=== PATIENT | male | born 1985 | race Caucasian/White ===

== ENCOUNTER 2018-01-14 04:00 | Emergency (ER) | payer SELFPAY ==
[~2018-01-14] VITALS: Ht 180.3 cm; Wt 108.9 kg
[~2018-01-14 04:00] MED LIST: PRED20TA6 PO; SULF-198 PO; VALA100062 PO
--- NOTE | 2018-01-14 04:04 | ER Report ---
History and Physical Time Seen By MD: 04:00 HPI/ROS CHIEF COMPLAINT: ankle injury HISTORY OF PRESENT ILLNESS: This is a 33 year old male. He slipped on the ice, heard a pop when he fell. Ankle is at an odd angle. He has pain, but is blunted due to alcohol intoxication tonight. Last drink was about 45 minutes prior to arrival here in the ER. Last food was at about 2100 hours. Has sensation in the foot and toes and can move the toes. Did not hit his head or lose consciousness. Has a scrape on his lower back. No other injuries. Allergies: Coded Allergies: No Known Drug Allergies (Unverified , 01/14/18) Home Meds Active Scripts Ondansetron (ZOFRAN ODT) 4 Mg Tab.rapdis, 4 MG PO Q6H Y for NAUSEA/VOMITING, # 20 TAB.VEE 0 Refills Prov:LIDYA JADE MD 01/14/18 Hydrocodone Bit/Acetaminophen (HYDROCODON-ACETAMINOPHEN 5-325) 1 Each Tablet, 1 EACH PO Q4H Y for PAIN, #20 TAB 0 Refills Prov:LIDYA JADE MD 01/14/18 Discontinued Scripts Prednisone (PREDNISONE) 20 Mg Tablet, 20 MG PO QDAY for reduced nerve inflammation, #12 2 tablets by mouth daily x4 days, then one by mouth daily x4 days Prov:REGINE JONES DO 04/02/15 Valacyclovir Hcl (VALTREX) 1,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, 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, #21 Prov:REGINE JONES DO 04/02/15 Reviewed Nurses Notes: Yes Hx Smoking: Yes Smoking Status: Light Tobacco Smoker Hx Substance Use Disorder: No Hx Alcohol Use: No Constitutional Vital Sign - Last 24 Hours 01/14/18 01/14/18 01/14/18 01/14/18 04:03 04:04 04:30 04:48 Temp 98.3 Pulse 103 95 Resp 20 17 B/P (MAP) 134/81 (98) 134/81 121/67 (85) 109/79 (89) Pulse Ox 93 92 O2 Delivery Room Air 01/14/18 01/14/18 01/14/18 01/14/18 04:50 04:52 04:55 05:00 Pulse 78 Resp 23 B/P (MAP) 112/71 (85) 98/65 (76) 109/80 (90) 116/75 (89) Pulse Ox 90 01/14/18 01/14/18 01/14/18 01/14/18 05:05 05:10 05:15 05:30 B/P (MAP) 115/72 (86) 119/68 (85) 139/76 (97) 111/47 (68) 01/14/18 05:35 Pulse 89 Resp 23 Pulse Ox 91 Physical Exam General: Alert, intoxicated, no acute distress. Musculoskeletal: Obvious deformity fo the ankle. Tender. Foot is posterior and angle to the side with the distal tibia sticking forward. Skin: Some bruising, but no laceration or skin breakdown anywhere. Neuro: Normal sensation. Cardiovascular: Normal pulses and capillary refill. Medical Decision Making EKG/Imaging Imaging LEFT LOWER LEG: Indication: Injury. Technique: 2 views were obtained. Comparison: None. Findings: There is a comminuted fracture of the distal fibular shaft, with significant angulation and displacement. The proximal fibula appears intact and unremarkable. There are no definite signs of tibial fracture. There is posterior dislocation of the ankle. The skeletal structures are otherwise intact. There is normal mineralization. IMPRESSION: Comminuted fracture of the distal fibula. Report Dictated By: Gabino Hastings MD at 01/14/2018 4:55 AM LEFT FOOT: Indication: Injury. Technique: 2 views were obtained. Comparison: None. Findings: There is posterior dislocation of the left ankle. No fracture is identified in the bones of the left foot. There is normal mineralization. IMPRESSION: The bones of the left foot are intact. Report Dictated By: Gabino Hastings MD at 01/14/2018 4:52 AM LEFT ANKLE: Indication: Injury. Technique: Frontal and lateral views were obtained. Comparison: None. Findings: There is a comminuted fracture of the distal fibular shaft, with significant angulation and displacement. A fracture at the posterior margin of the distal tibia is suspected. There is posterior dislocation of the talus. There are no signs of talar fracture. There is normal mineralization of the skeletal structures. Periarticular soft tissue swelling is evident. IMPRESSION: Fracture/dislocation. Report Dictated By: Gabino Hastings MD at 01/14/2018 4:47 AM ANKLE 2 VIEW LEFT HISTORY: Post reduction. COMPARISON: Earlier same day at 4:14 AM. TECHNIQUE: AP and lateral views of the left ankle. FINDINGS: There is a comminuted fracture of the distal fibular diaphysis. There has been reduction of the apex anterior angulation. The tibiotalar dislocation has been reduced. There is an enthesophyte at the insertion of Achilles tendon on the calcaneus. IMPRESSION: 1. Reduction of the tibiotalar dislocation. 2. Improvement in alignment of the distal fibular diaphysis. Report Dictated By: Nidia Lepe at 01/14/2018 5:22 AM ED Course/Re-evaluation Clinical Indication for ER IV: Hydration, IV Access ED Course After evaluation, he started having pain and nausea. Gave Fentanyl 50mcg IV and Zofran 4mg IV. Discussed the results of imaging with the patient once available. Recommended sedation and reduction, explained risks and benefits. Patient agreed to do this and we proceeded as noted below. Successful relocation. Patient did fine. Viewed the post-reduction images and discussed briefly with Dr. Landaverde and will have the patient see [facility] on Tuesday. Pain management with Lortab as noted. See instructions below. Procedure: Procedural sedation. A pre-sedation evaluation was completed on the patient. Patient is an appropriate candidate for procedural sedation. The risks of the sedation were discussed with the patient. A time out was completed. The patient was reevaluated immediately prior to initiation of sedation. The patient was sedated with Fentany and Propofol. The patient was monitored with continuous pulse oximetry and playground monitor. There were no complications and no significant hypoxemia. I remained at the bedside for the sedation. The total time I spent in the procedural sedation was 30 min. Post sedation evaluation: Patient was alert and cooperative, hemodynamically stable with appropriate respiratory status, temperature and pain control without ongoing nausea and vomiting. Procedure: Ankle fracture dislocation reduction: The ankle was reduced in the usual fashion without complications. Post reduction the patient's neurovascular exam is normal. Post reduction x-ray demonstrates reduction of the joint to the anatomic position. The procedure was performed by myself. Procedure: Posterior and sugar Tong half cast placement on the left ankle. A half-cast/splint as noted above was applied. After application of the half- cast, I returned and re-examined the patient. The half-cast was adequately immobilizing the joint and distally the patient's circulation and sensation was intact. This was applied by myself. Decision to Disposition Date: Jan 14, 2018 Decision to Disposition Time: 05:34 Depart Departure Latest Vital Signs Vital Signs Date Time Temp Pulse Resp B/P (MAP) Pulse Ox O2 Delivery O2 Flow Rate FiO2 01/14/18 05:35 89 23 91 01/14/18 05:30 111/47 (68) 01/14/18 04:04 98.3 Room Air Impression: Primary Impression: Closed left fibular fracture Additional Impression: Closed fracture dislocation of ankle Condition: Improved Disposition: HOME OR SELF-CARE New Scripts Ondansetron (ZOFRAN ODT) 4 Mg Tab.rapdis 4 MG PO Q6H Y for NAUSEA/VOMITING, #20 TAB.VEE 0 Refills Prov: LIDYA JADE MD 01/14/18 Hydrocodone Bit/Acetaminophen (HYDROCODON-ACETAMINOPHEN 5-325) 1 Each Tablet 1 EACH PO Q4H Y for PAIN, #20 TAB 0 Refills Prov: LIDYA JADE MD 01/14/18 Patient Instructions: Ankle Fracture (ED) Additional Instructions: No weight bearing on the left leg; will need to use crutches. Keep it elevated while at rest. Apply ice over the splint every hour while awake for about 10-15 minutes. Take Lortab 5/325, one every 4 hours as needed for pain. Take Zofran 4mg, one every 4 hours as needed for nausea. Call [facility] on Tuesday morning and they will get you in for further treatment and let you know what needs to be done to address the fracture. Return for any uncontrolled pain, nausea, fevers or chills, or shortness of breath. Problem Qualifiers Primary Impression: Closed left fibular fracture Encounter type: initial encounter Fibula location: shaft Fracture morphology: comminuted Fracture alignment: nondisplaced Qualified Codes: S82.455A - Nondisplaced comminuted fracture of shaft of left fibula, initial encounter for closed fracture Additional Impression: Closed fracture dislocation of ankle Encounter type: initial encounter Laterality: left Qualified Codes: S82.892A - Other fracture of left lower leg, initial encounter for closed fracture LIDYA JADE MD Jan 14, 2018 04:04
[2018-01-14] MEDS ORDERED: fentaNYL CITR 100 MCG/2 ML AMP IVP ONE ×2 (04:20→04:45)
[2018-01-14] MEDS ORDERED: ONDANSETRON 4 MG/2 ML VIAL IVP ONE (04:25)
[2018-01-14] MEDS ORDERED: PROPOFOL EMUL 10MG/ML 20 ML VL IVP ONE (04:45)
[2018-01-14] MEDS ORDERED: fentaNYL CITR 100 MCG/2 ML AMP ONE (04:45)
--- NOTE | 2018-01-14 04:56 | RADIOLOGY IMAGING REPORT ---
FACILITY: [facility] - [place], [place] PATIENT NAME: Alli Mchugh : 1985 MR: [id number] V: [id number] EXAM DATE: ORDERING PHYSICIAN: LIDYA JADE TECHNOLOGIST: Location: [facility] Patient: Alli Mchugh : 1985 Visit/Account:[id number] Date of Sevice: 01/14/2018 LEFT ANKLE: Indication: Injury. Technique: Frontal and lateral views were obtained. Comparison: None. Findings: There is a comminuted fracture of the distal fibular shaft, with significant angulation and displacement. A fracture at the posterior margin of the distal tibia is suspected. There is posterio r dislocation of the talus. There are no signs of talar fracture. There is normal mineralization of t he skeletal structures. Periarticular soft tissue swelling is evident. IMPRESSION: Fracture/dislocation. Report Dictated By: Gabino Hastings MD at 01/14/2018 4:47 AM Report E-Signed By: Gabino Hastings MD at 01/14/2018 4:52 AM WSN:[id number]
--- NOTE | 2018-01-14 04:58 | RADIOLOGY IMAGING REPORT ---
FACILITY: [facility] - [place] PATIENT NAME: Alli Mchugh : 1985 MR: [id number] V: [id number] EXAM DATE: ORDERING PHYSICIAN: LIDYA JADE TECHNOLOGIST: Location: [facility] Patient: Alli Mchugh : 1985 Visit/Account:[id number] Date of Sevice: 01/14/2018 LEFT FOOT: Indication: Injury. Technique: 2 views were obtained. Comparison: None. Findings: There is posterior dislocation of the left ankle. No fracture is identified in the bones of the left foot. There is normal mineralization. IMPRESSION: The bones of the left foot are intact. Report Dictated By: Gabino Hastings MD at 01/14/2018 4:52 AM Report E-Signed By: Gabino Hastings MD at 01/14/2018 4:55 AM WSN:[id number]
--- NOTE | 2018-01-14 05:01 | RADIOLOGY IMAGING REPORT ---
FACILITY: [facility] - [place] PATIENT NAME: Alli Mchugh : 1985 MR: [id number] V: [id number] EXAM DATE: ORDERING PHYSICIAN: LIDYA JADE TECHNOLOGIST: Location: [facility] Patient: Alli Mchugh : 1985 Visit/Account:[id number] Date of Sevice: 01/14/2018 LEFT LOWER LEG: Indication: Injury. Technique: 2 views were obtained. Comparison: None. Findings: There is a comminuted fracture of the distal fibular shaft, with significant angulation and displacement. The proximal fibula appears intact and unremarkable. There are no definite signs of ti bial fracture. There is posterior dislocation of the ankle. The skeletal structures are otherwise int act. There is normal mineralization. IMPRESSION: Comminuted fracture of the distal fibula. Report Dictated By: Gabino Hastings MD at 01/14/2018 4:55 AM Report E-Signed By: Gabino Hastings MD at 01/14/2018 4:58 AM WSN:[id number]
--- NOTE | 2018-01-14 05:28 | RADIOLOGY IMAGING REPORT ---
FACILITY: [facility] - [place] PATIENT NAME: Alli Mchugh : 1985 MR: [id number] V: [id number] EXAM DATE: ORDERING PHYSICIAN: LIDYA JADE TECHNOLOGIST: Location: [facility] Patient: Alli Mchugh : 1985 Visit/Account:[id number] Date of Sevice: 01/14/2018 ANKLE 2 VIEW LEFT HISTORY: Post reduction. COMPARISON: Earlier same day at 4:14 AM. TECHNIQUE: AP and lateral views of the left ankle. FINDINGS: There is a comminuted fracture of the distal fibular diaphysis. There has been reduction of the apex anterior angulation. The tibiotalar dislocation has been reduced. There is an enthesophyte at the insertion of Achilles tendon on the calcaneus. IMPRESSION: 1. Reduction of the tibiotalar dislocation. 2. Improvement in alignment of the distal fibular diaphysis. Report Dictated By: Nidia Lepe at 01/14/2018 5:22 AM Report E-Signed By: Nidia Lepe at 01/14/2018 5:24 AM WSN:[email or web address]
[2018-01-14 05:30] VITALS: BP 111/47
[2018-01-14] MEDS ORDERED: ONDA4TAB PO (05:38)
[2018-01-14] MEDS ORDERED: LOR5/325 PO (05:38)
[2018-01-14] MEDS ORDERED: ACET/HYDROC 5/325MG TH ER ONLY 2 TAB/BOTTLE PO ONE (05:40)
[2018-01-14] MEDS ORDERED: ONDANSETRON 4 MG ODT TH SL ONE (05:40)
[2018-01-14] MEDS ORDERED: ONDANSETRON 4 MG ODT TABDP SL ONE (05:40)
[2018-01-14] MEDS ORDERED: APAP/HYDROCODONE 325/5 TAB PO ONE (05:40)
== END 2018-01-14 05:54 | disposition home or self-care (01) ==
LOC: ER 04:26
DX: S82.455A Nondisplaced comminuted fracture of shaft of left fibula, initial encounter for closed fracture (principal); S82.892A Other fracture of left lower leg, initial encounter for closed fracture; W00.0XXA Fall on same level due to ice and snow, initial encounter
CPT/HCPCS: 27788; 73590; 73600; 73610; 73630; 96374; 96375; 99284; J2405; J2704; J3010; 99152

== ENCOUNTER 2018-02-16 15:21 | Inpatient (IN) | payer OTHER ==
--- NOTE | 2018-02-16 15:28 | ER Report ---
History and Physical Time Seen By MD: 15:28 HPI/ROS CHIEF COMPLAINT: DVT HISTORY OF PRESENT ILLNESS: 33-year-old male patient presents to emergency room with complaint of a DVT. Patient states that he broke his ankle in December. He came in the emergency room, he had a reduced and splinted. He had surgery proximal 0.5 weeks ago. He states that he has noticed over last several days swelling and pain in the left calf. He did go and see a provider at [facility]. He states that they ordered a ultrasound. The ultrasound was positive and they referred him to the emergency room. Patient denies having any chest pain, any shortness of breath. He denies having any fevers or chills. Patient states he is not taking anything for the pain. He states the pain was significant last night. He states that he was almost unable to bear the pain and almost came in last night for evaluation. REVIEW OF SYSTEMS: Respiratory: No cough, no dyspnea. Cardiovascular: No chest pain, no palpitations. Gastrointestinal: No vomiting, no abdominal pain. Musculoskeletal: No back pain. Allergies: Coded Allergies: No Known Drug Allergies (Unverified , 02/16/18) Home Meds Discontinued Scripts Ondansetron (ZOFRAN ODT) 4 Mg Tab.rapdis, 4 MG PO Q6H Y for NAUSEA/VOMITING, # 20 TAB.VEE 0 Refills Prov:LIDYA JADE MD 01/14/18 Hydrocodone Bit/Acetaminophen (HYDROCODON-ACETAMINOPHEN 5-325) 1 Each Tablet, 1 EACH PO Q4H Y for PAIN, #20 TAB 0 Refills Prov:LIDYA JADE MD 01/14/18 Past Medical/Surgical History Patient has a past medical history of migraines, alcohol use. Patient has surgical history of left fibula repair, tonsillectomy. Reviewed Nurses Notes: Yes Hx Smoking: Yes Smoking Status: Light Tobacco Smoker Hx Substance Use Disorder: No Hx Alcohol Use: No Constitutional Vital Sign - Last 24 Hours 02/16/18 02/16/18 02/16/18 02/16/18 15:27 15:29 15:31 15:36 Temp 98.3 Pulse 108 108 108 Resp 20 B/P (MAP) 139/88 111/103 (106) 139/88 (105) Pulse Ox 91 91 90 O2 Delivery Room Air 3/02/16/18 02/16/18 02/16/18 15:41 15:45 15:46 15:46 Pulse 104 98 B/P (MAP) 134/84 (101) Pulse Ox 90 90 O2 Flow Rate 2.0 02/16/18 02/16/18 02/16/18 02/16/18 15:51 15:56 16:00 16:01 Pulse 100 97 104 B/P (MAP) 132/76 (94) Pulse Ox 94 95 95 02/16/18 02/16/18 02/16/18 02/16/18 16:06 16:11 16:15 16:16 Pulse ? B/P (MAP) 122/70 (87) 02/16/18 02/16/18 02/16/18 02/16/18 16:21 16:26 16:30 16:31 Pulse 98 105 95 B/P (MAP) 121/52 (75) Pulse Ox 95 94 95 02/16/18 02/16/18 02/16/18 02/16/18 16:36 16:41 16:45 16:46 Pulse 92 91 92 B/P (MAP) 116/72 (87) Pulse Ox 96 95 97 02/16/18 02/16/18 16:51 16:56 Pulse 92 90 Pulse Ox 96 97 Physical Exam General Appearance: The patient is alert, has no immediate need for airway protection and no current signs of toxicity. Respiratory: Chest is non tender, lungs are clear to auscultation. Cardiac: regular rate and rhythm Gastrointestinal: Abdomen is soft and non tender, no masses, bowel sounds normal. Musculoskeletal: Neck: Neck is supple and non tender. Extremities have full range of motion and are non tender. Skin: No rashes or lesions. DIFFERENTIAL DIAGNOSIS: After history and physical exam differential diagnosis was considered for DVT, PE. Medical Decision Making EKG/Imaging Imaging EXAMINATION: CTA of the chest with IV contrast HISTORY: DVT. Elevated heart rate. SpO2 89%. TECHNIQUE: Pulmonary embolus protocol - Thin axial CT images of the chest were obtained with IV contrast during maximal pulmonary arterial opacification. Reconstruction of the source data includes multiplanar 2D coronal and sagittal reconstructed images, and 3D coronal and sagittal MIP images. [employer] images have been stored on PACS. One of the following dose optimization techniques was utilized in the performance of this exam: Automated exposure control; adjustment of the mA and/ or kV according to the patient's size; or use of an iterative reconstruction technique. Specific details can be referenced in the facility's radiology CT exam operational policy. Contrast: 75 mL of IV Isovue-370. COMPARISON: None. FINDINGS: Pulmonary arteries: Exam is positive for pulmonary embolism. There is a filling defect in the distal right main pulmonary artery, with filling defects extending into segmental and subsegmental branches in the right upper, middle, and lower lobes. There are several additional small filling defects within segmental and subsegmental branches in the left upper and lower lobes. Heart, aorta, and great vessels: Normal caliber thoracic aorta. Normal heart size. Borderline elevated RV:LV ratio measuring 1.0. No pericardial effusion. Lungs and pleura: There are small foci of peripheral airspace disease in the right middle lobe and anterior right lower lobe, in the posterior right lung base, and in the left lower lobe laterally, suspicious for small pulmonary infarcts. No pleural effusion or pneumothorax. Mediastinum and pablo: Negative. Visualized upper abdomen: Unremarkable. Chest wall: Negative. Bones: Negative. IMPRESSION: 1. Positive exam for pulmonary embolism. Moderate clot burden predominantly to the right lung, with filling defects present in the right upper, middle, and lower lobes, as well as several small filling defects in the left upper and lower lobes. 2. Borderline elevated RV:LV ratio measuring 1.0, which may reflect mild right heart strain. 3. Small foci of peripheral airspace disease in both lungs, suspicious for small pulmonary infarcts. No pleural effusion. Findings were discussed with Olivia Frias MD at 02/16/2018 4:43 PM. Report Dictated By: Oliverio Valentin MD at 02/16/2018 4:35 PM Report E-Signed By: Oliverio Valentin MD at 02/16/2018 4:45 PM ED Course/Re-evaluation ED Course Patient was admitted to exam room, history and physical were obtained. Differential diagnoses were considered. On examination lungs are clear, heart was regular although his tachycardia. Patient did have oxygen saturations that dropped down to 8889%. Due that I did become concerned about possible pulmonary emboli. A CT pulmonary angiogram was done. Results showed moderate clot burden throughout, did have a clot in the distal right pulmonary artery. I discussed the case with sami Atkinson. He felt that with the new recommendations the patient should be admitted and watched overnight. We'll go ahead and give him a dose of Zaroxolyn here in the emergency room. I discussed this with the patient who verbalized understanding and agreement with plan. The patient will be admitted to the hospital with a diagnosis of pulmonary emboli. Decision to Disposition Date: Feb 16, 2018 Decision to Disposition Time: 17:15 Depart Departure Latest Vital Signs Vital Signs Date Time Temp Pulse Resp B/P (MAP) Pulse Ox O2 Delivery O2 Flow Rate FiO2 02/16/18 16:56 90 97 02/16/18 16:45 116/72 (87) 02/16/18 15:46 2.0 02/16/18 15:27 98.3 20 Room Air Impression: Primary Impression: Pulmonary emboli Additional Impression: DVT (deep venous thrombosis) Condition: Condition Unchanged Disposition: Admitted from ER New Scripts No Active Prescriptions or Reported Meds Problem Qualifiers Primary Impression: Pulmonary emboli Pulmonary embolism type: other Chronicity: acute Acute cor pulmonale presence: with acute cor pulmonale Qualified Codes: I26.09 - Other pulmonary embolism with acute cor pulmonale Additional Impression: DVT (deep venous thrombosis) DVT location: lower extremity Affected thrombotic vein of extremity: unspecified vein of extremity Chronicity: acute Laterality: left Qualified Codes: I82.402 - Acute embolism and thrombosis of unspecified deep veins of left lower extremity SILKE HEIN Feb 16, 2018 15:28
[2018-02-16] MEDS ORDERED: ONDANSETRON 4 MG/2 ML VIAL IVP ONE (16:00)
[2018-02-16] MEDS ORDERED: diphenhydrAMINE 50 MG/ML VIAL IVP ONE (16:00)
[2018-02-16] MEDS ORDERED: NS(*) 0.9% 1000 ML BAG 1,000 ML IV ONE (16:00)
[2018-02-16] MEDS ORDERED: IOPAMIDOL 76% 75 ML INFUS BTL 75 ML ONE (16:06)
[2018-02-16] MEDS ORDERED: NS 0.9% 150 ML BAG 150 ML ONE (16:06)
--- NOTE | 2018-02-16 16:48 | RADIOLOGY IMAGING REPORT ---
FACILITY: [facility] - [place] PATIENT NAME: Timothy Mchugh : 1985 MR: [id number] V: [id number] EXAM DATE: ORDERING PHYSICIAN: SILKE HEIN TECHNOLOGIST: Location: [facility] Patient: Timothy Mchugh : 1985 Visit/Account:[id number] Date of Sevice: 02/16/2018 EXAMINATION: CTA of the chest with IV contrast HISTORY: DVT. Elevated heart rate. SpO2 89%. TECHNIQUE: Pulmonary embolus protocol - Thin axial CT images of the chest were obtained with IV con trast during maximal pulmonary arterial opacification. Reconstruction of the source data includes mul tiplanar 2D coronal and sagittal reconstructed images, and 3D coronal and sagittal MIP images. Repres entative images have been stored on PACS. One of the following dose optimization techniques was utilized in the performance of this exam: Autom ated exposure control; adjustment of the mA and/or kV according to the patient's size; or use of an i terative reconstruction technique. Specific details can be referenced in the facility's radiology C T exam operational policy. Contrast: 75 mL of IV Isovue-370. COMPARISON: None. FINDINGS: Pulmonary arteries: Exam is positive for pulmonary embolism. There is a filling defect in the distal right main pulmonary artery, with filling defects extending into segmental and subsegmental branches in the right upper, middle, and lower lobes. There are several additional small filling defects with in segmental and subsegmental branches in the left upper and lower lobes. Heart, aorta, and great vessels: Normal caliber thoracic aorta. Normal heart size. Borderline elevat ed RV:LV ratio measuring 1.0. No pericardial effusion. Lungs and pleura: There are small foci of peripheral airspace disease in the right middle lobe and a nterior right lower lobe, in the posterior right lung base, and in the left lower lobe laterally, bailey picious for small pulmonary infarcts. No pleural effusion or pneumothorax. Mediastinum and pablo: Negative. Visualized upper abdomen: Unremarkable. Chest wall: Negative. Bones: Negative. IMPRESSION: 1. Positive exam for pulmonary embolism. Moderate clot burden predominantly to the right lung, with f illing defects present in the right upper, middle, and lower lobes, as well as several small filling defects in the left upper and lower lobes. 2. Borderline elevated RV:LV ratio measuring 1.0, which may reflect mild right heart strain. 3. Small foci of peripheral airspace disease in both lungs, suspicious for small pulmonary infarcts. No pleural effusion. Findings were discussed with Olivia Frias MD at 02/16/2018 4:43 PM. Report Dictated By: Oliverio Valentin MD at 02/16/2018 4:35 PM Report E-Signed By: Oliverio Valentin MD at 02/16/2018 4:45 PM WSN:[id number]
[2018-02-16] MEDS ORDERED: RIVAROXABAN 10 MG TAB PO ONE (17:00)
[2018-02-16] MEDS ORDERED: APAP/HYDROCODONE 325/5 TAB PO ONE (17:30)
[2018-02-16 18:30] VITALS: BP 118/65
--- NOTE | 2018-02-16 19:20 | History & Physical ---
History of Present Illness Chief Complaint Swelling in calf History of Present Illness This patient presented to the emergency room after he was found to have a DVT in the left leg at his orthopedics appointment. He fractured his ankle last month and underwent surgery to repair it last week. Today he developed increased pain and swelling in that leg and an ultrasound was positive for DVT. An CT angiogram was done as part of his emergency room visit and he was found to have a pulmonary embolism. History Problems: (1) Closed fracture dislocation of ankle Status: Acute Home Meds Discontinued Scripts Ondansetron (ZOFRAN ODT) 4 Mg Tab.rapdis, 4 MG PO Q6H Y for NAUSEA/VOMITING, # 20 TAB.VEE 0 Refills Prov:LIDYA JADE MD 01/14/18 Hydrocodone Bit/Acetaminophen (HYDROCODON-ACETAMINOPHEN 5-325) 1 Each Tablet, 1 EACH PO Q4H Y for PAIN, #20 TAB 0 Refills Prov:LIDYA JADE MD 01/14/18 Allergies: Coded Allergies: No Known Drug Allergies (Unverified , 02/16/18) Hx Smoking: Yes Smoking Status: Light Tobacco Smoker Hx Alcohol Use: Yes (few once a week) Hx Substance Use Disorder: No Review of Systems All Systems Reviewed/Normal: Yes, Except as Noted Respiratory: Shortness of Breath Exam Vital Signs Vital Signs Date Time Temp Pulse Resp B/P (MAP) Pulse Ox O2 Delivery O2 Flow Rate FiO2 02/16/18 17:46 92 97 02/16/18 17:45 122/81 (95) 02/16/18 15:46 2.0 02/16/18 15:27 98.3 20 Room Air Neuro: No Gross deficits Eyes: PERRLA Cardiovascular: Regular Rate and Rhythm Respiratory: Clear to Auscultation GI: Abd Soft and Non-Tender Extremities: No Edema Integumentary: No Cyanosis Medical Decision Making EKG / Imaging Imaging CT angiogram reviewed. Assessment and Plan Problems: (1) Acute pulmonary embolism Assessment & Plan: A CT scan did show moderate volume pulmonary embolism bilateral. He was started on Xarelto in the emergency department. We will continue the Xarelto and place him on telemetry overnight. He will require a minimum 6 months on anticoagulation. (2) DVT (deep venous thrombosis) Status: Acute Copies to: RIKI HARP MD Venous Thromboembolism Antithrombotics Is Pt On Any Antithrombotics?: Yes Exam Sepsis Risk: No Definite Risk Problem Qualifiers (1) DVT (deep venous thrombosis): DVT location: lower extremity Affected thrombotic vein of extremity: unspecified vein of extremity Chronicity: acute Laterality: left Qualified Codes: I82.402 - Acute embolism and thrombosis of unspecified deep veins of left lower extremity RANJANA GARCIA DO Feb 16, 2018 19:20
--- NOTE | 2018-02-16 19:44 | EKG ---
[facility]AC[facility] PATIENT NAME: MAHESH VALENZUELA : [id number] MR: [id number] V: [id number] EXAM DATE: ORDERING PHYSICIAN: RANJANA GARCIA TECHNOLOGIST: DESTINEY Test Reason : PE Blood Pressure : / mmHG Vent. Rate : 104 BPM Atrial Rate : 104 BPM P-R Int : 148 ms QRS Dur : 094 ms QT Int : 336 ms P-R-T Axes : 074 054 057 degrees QTc Int : 441 ms Sinus tachycardia Otherwise normal ECG Confirmed by RANJANA GARCIA ([id number]) on 02/17/2018 7:22:33 AM Referred By: Confirmed By:RANJANA GARCIA
[2018-02-16 19:55] VITALS: BP 114/68
[2018-02-16] MEDS: APAP/HYDROCODONE 325/5 TAB PO PRN (21:37)
[2018-02-17] MEDS: RIVAROXABAN 10 MG TAB PO SCH ×2 (05:18→17:32)
[2018-02-17] MEDS: APAP/HYDROCODONE 325/5 TAB PO PRN ×3 (05:19→18:46)
[2018-02-17 05:20] VITALS: BP 106/72
[2018-02-17 06:00] LABS: PLATELET COUNT, AUTOMATED 211 K/uL (150-450)
[2018-02-17 06:04] LABS: INR 1.26
[2018-02-17 08:58] VITALS: BP 135/78
--- NOTE | 2018-02-17 14:59 | Hospitalist Progress Note ---
Subjective Progress Notes Subjective The patient does not feel good. He continues to have right sided chest pain and is short of breath with exertion. Physical Exam Vital Signs Date Time Temp Pulse Resp B/P (MAP) Pulse Ox O2 Delivery O2 Flow Rate FiO2 02/17/18 09:30 91 02/17/18 08:58 98.0 16 135/78 (97) 91 Nasal Cannula 1.0 Intake and Output 02/18/18 07:00 Intake Total 0 ml Balance 0 ml Intake Oral 0 ml General Appearance: Alert, Awake, No Acute Distress Neuro: No Gross deficits Cardiovascular: Regular Rate and Rhythm Respiratory: Clear to Auscultation GI: Soft and Non-Tender Extremities: Warm, Perfused, Other (No swelling of either calf.) Psych: Appropriate Mood & Affect Result Diagram: 02/17/1851802/17/18518 Assessment and Plan Problems: (1) Acute pulmonary embolism Assessment & Plan: A CT scan did show moderate volume pulmonary embolism bilateral. He was started on Xarelto in the emergency department. We will continue the Xarelto and place him on telemetry overnight. He will require a minimum 6 months on anticoagulation. (2) DVT (deep venous thrombosis) Status: Acute Time Spent on Plan of Care: < 30 min Exam Sepsis Risk: No Definite Risk Problem Qualifiers (1) DVT (deep venous thrombosis): DVT location: lower extremity Affected thrombotic vein of extremity: unspecified vein of extremity Chronicity: acute Laterality: left Qualified Codes: I82.402 - Acute embolism and thrombosis of unspecified deep veins of left lower extremity TRACE SLAUGHTER MD Feb 17, 2018 14:59
[2018-02-17 17:06] VITALS: BP 134/90
[2018-02-17 19:30] VITALS: BP 139/75
[2018-02-17 23:41] VITALS: BP 127/73
[2018-02-18] MEDS: APAP/HYDROCODONE 325/5 TAB PO PRN ×4 (00:49→20:38)
[2018-02-18 03:51] VITALS: BP 116/70
[2018-02-18] MEDS: RIVAROXABAN 10 MG TAB PO SCH ×2 (05:50→17:24)
[2018-02-18 07:26] VITALS: BP 138/74
--- NOTE | 2018-02-18 10:04 | Hospitalist Progress Note ---
Subjective Progress Notes Subjective Has SOB with any activity and uncomfortable with pressure in chest. No blood with cough. Physical Exam Vital Signs Date Time Temp Pulse Resp B/P (MAP) Pulse Ox O2 Delivery O2 Flow Rate FiO2 02/18/18 07:26 99.3 93 16 138/74 (95) 91 Nasal Cannula 1.0 Intake and Output 02/19/18 07:00 Intake Total 340 ml Balance 340 ml Intake Oral 340 ml General Appearance: Alert, Awake, No Acute Distress, Afebrile Respiratory: Other (Decreased BS both lower lobes but no rubs, wheezes or ronchi.) Psych: Alert & Oriented X3, Appropriate Mood & Affect Result Diagram: 02/17/1851802/17/18518 Assessment and Plan Problems: (1) Acute pulmonary embolism Assessment & Plan: A CT scan did show moderate volume pulmonary embolism bilateral. He was started on Xarelto in the emergency department. Continue the Xarelto on telemetry. He will require a minimum 6 months on anticoagulation. Still quite symptomatic with resp status so will keep today and most likely home tomorrow. Answered many questions about VTE. Increase activity gently and use inspirometer qhour. (2) DVT (deep venous thrombosis) Status: Acute Time Spent on Plan of Care: > 30 min Exam Sepsis Risk: No Definite Risk Problem Qualifiers (1) DVT (deep venous thrombosis): DVT location: lower extremity Affected thrombotic vein of extremity: unspecified vein of extremity Chronicity: acute Laterality: left Qualified Codes: I82.402 - Acute embolism and thrombosis of unspecified deep veins of left lower extremity GALINA SHERWOOD MD FACP Feb 18, 2018 10:04
[2018-02-18 12:02] VITALS: BP 118/68
[2018-02-18 19:41] VITALS: BP 130/79
[2018-02-18 23:03] VITALS: BP 138/72
[2018-02-19] MEDS: APAP/HYDROCODONE 325/5 TAB PO PRN ×4 (03:04→22:58)
[2018-02-19 03:05] VITALS: BP 118/68
[2018-02-19] MEDS: RIVAROXABAN 10 MG TAB PO SCH ×2 (04:51→16:51)
[2018-02-19 07:48] VITALS: BP 116/68
[2018-02-19] MEDS ORDERED: INFLUENZA VIRUS VAC 0.5 ML SYR IM ONLY ONE (09:00)
--- NOTE | 2018-02-19 10:48 | Hospitalist Progress Note ---
Subjective Progress Notes Subjective He has had continued pleuritic pain, but has been working with IS. Low grade temps. Physical Exam Vital Signs Date Time Temp Pulse Resp B/P (MAP) Pulse Ox O2 Delivery O2 Flow Rate FiO2 02/19/18 10:01 2.0 02/19/18 07:48 98.7 83 18 116/68 (84) 91 Nasal Cannula Intake and Output 02/20/18 07:00 Intake Total 1280 ml Balance 1280 ml Intake Oral 1280 ml General Appearance: Alert, Awake Cardiovascular: Regular Rate and Rhythm Respiratory: Other (fairly clear, but with decreased breath sounds at both bases R>L) Chest: No Tenderness GI: Soft and Non-Tender Extremities: Warm, Perfused, Other (left lower extremity surgical wounds are well healed/no erythema/no edema) Psych: Alert & Oriented X3 Result Diagram: 02/17/1851802/17/18518 Assessment and Plan Problems: (1) Acute pulmonary embolism Assessment & Plan: CT pulmonary angiogram did show moderate volume pulmonary embolism bilaterally. He has been started on Xarelto. He will require a minimum 6 months on anticoagulation. He is still quite symptomatic with pleuritic pain and hypoxia. Will continue work with IS. Will check CXR to see if any evolutionary changes. (2) DVT (deep venous thrombosis) Status: Acute Assessment & Plan: Left lower extremity following ankle fracture/ORIF. He is on Xarelto as noted above. Exam Sepsis Risk: No Definite Risk Problem Qualifiers (1) DVT (deep venous thrombosis): DVT location: lower extremity Affected thrombotic vein of extremity: unspecified vein of extremity Chronicity: acute Laterality: left Qualified Codes: I82.402 - Acute embolism and thrombosis of unspecified deep veins of left lower extremity CHIVO SLAUGHTER MD Feb 19, 2018 10:48
[2018-02-19 11:18] LABS: PLATELET COUNT, AUTOMATED 281 K/uL (150-450)
--- NOTE | 2018-02-19 12:17 | RADIOLOGY IMAGING REPORT ---
FAC[place] [facility] [place]IENT NAME: Timothy Mchugh : 1985 MR: [id number] V: [id number] EXAM DATE: ORDERING PHYSICIAN: CHIVO SLAUGHTER TECHNOLOGIST: Location: [facility] Patient: Timothy Mchugh : 1985 Visit/Account:[id number] Date of Sevice: 02/19/2018 CHEST PA AND LAT History: Fever, recent PE Comparison CTA 02/16/2018. FINDINGS: Persistent mild patchy airspace disease in both lung bases similar to the prior CT. No evidence of ne w infiltrates. No effusion. Heart size within normal limits. IMPRESSION: Persistent patchy airspace disease in the lower lungs similar to the prior CT. Report Dictated By: Mark Landry MD at 02/19/2018 12:12 PM Report E-Signed By: Mark Landry MD at 02/19/2018 12:14 PM [id number]
[2018-02-19 12:18] VITALS: BP 118/72
[2018-02-19 19:45] VITALS: BP 124/68
[2018-02-20 04:57] VITALS: BP 112/68
[2018-02-20] MEDS: APAP/HYDROCODONE 325/5 TAB PO PRN (05:01)
[2018-02-20] MEDS: RIVAROXABAN 10 MG TAB PO SCH (05:01)
[2018-02-20 07:29] VITALS: BP 116/68
[2018-02-20] MEDS ORDERED: RIV10 PO (08:51)
[2018-02-20] MEDS ORDERED: RIVA15TA PO (08:53)
--- NOTE | 2018-02-20 09:06 | Hospitalist Depart ---
Discharge Summary Reason for Hosp/Final Diag: (1) Acute pulmonary embolism Status: Acute Hospital Course & Plan: CT pulmonary angiogram did show moderate volume pulmonary embolism bilaterally. He was started on Xarelto. He will require a minimum 6 months on anticoagulation. He is still quite symptomatic with pleuritic pain and hypoxia. He will continue IS and oxygen at home. (2) DVT (deep venous thrombosis) Status: Acute Hospital Course & Plan: Left lower extremity following ankle fracture/ORIF. He is on Xarelto as noted above. Departure Weight (Pounds): 240 Result Diagram: 02/19/18 1105 02/19/18 1105 Condition: Improved Discharge: Home, Self Care Discharge Instructions Home Meds Active Scripts Rivaroxaban 15 Mg (XARELTO 15 MG) 15 Mg Tablet, 15 MG PO BID for 18 Days, #36 TAB Prov:MURTAZA JOINER 02/20/18 Discontinued Scripts Ondansetron (ZOFRAN ODT) 4 Mg Tab.rapdis, 4 MG PO Q6H Y for NAUSEA/VOMITING, # 20 TAB.VEE 0 Refills Prov:LIDYA JADE MD 01/14/18 Hydrocodone Bit/Acetaminophen (HYDROCODON-ACETAMINOPHEN 5-325) 1 Each Tablet, 1 EACH PO Q4H Y for PAIN, #20 TAB 0 Refills Prov:LIDYA JADE MD 01/14/18 Diet: Regular Activity: As Tolerated Venous Thromboembolism Antithrombotics Is Pt On Any Antithrombotics?: Yes Problem Qualifiers (1) DVT (deep venous thrombosis): DVT location: lower extremity Affected thrombotic vein of extremity: unspecified vein of extremity Chronicity: acute Laterality: left Qualified Codes: I82.402 - Acute embolism and thrombosis of unspecified deep veins of left lower extremity MURTAZA JOINER Feb 20, 2018 09:06
== END 2018-02-20 11:10 | disposition home or self-care (01) | DRG 300 ==
LOC: ER 15:28 → MED 17:30
PROVIDERS: ADMIT Family Medicine; ATTEND Family Medicine
DX: T81.72XA Complication of vein following a procedure, not elsewhere classified, initial encounter (principal); I82.402 Acute embolism and thrombosis of unspecified deep veins of left lower extremity; F17.210 Nicotine dependence, cigarettes, uncomplicated; R07.81 Pleurodynia; R06.02 Shortness of breath; R00.0 Tachycardia, unspecified; Z87.81 Personal history of (healed) traumatic fracture; Z86.69 Personal history of other diseases of the nervous system and sense organs; Z90.89 Acquired absence of other organs
CPT/HCPCS: 36415; 71046; 71275; 82040; 82247; 82310; 82374; 82435; 82565; 82947; 84075; 84132; 84155; 84295; 84450; 84460; 84520; 85025; 85610; 93005; 96361; 96374; 96375; 99284; J1200; J2405; J7030; Q9967

== ENCOUNTER → 2018-02-16 | Outpatient (CLI) | payer OTHER ==
[~2018-02-16] MED LIST changes: +LOR5/325 PO; +ONDA4TAB PO
--- NOTE | 2018-02-16 15:28 | RADIOLOGY IMAGING REPORT ---
FACILITY: [facility] - [place] PATIENT NAME: Timothy Mchugh : 1985 MR: [id number] V: [id number] EXAM DATE: ORDERING PHYSICIAN: RIKI HARP TECHNOLOGIST: Location: [facility] - [place] Patient: Timothy Mchugh : 1985 Visit/Account:[id number] Date of Sevice: 02/16/2018 Left lower extremity venous ultrasound INDICATION: Pain, recent ORIF left ankle fracture COMPARISON: None available FINDINGS: The superficial femoral vein, profunda femoral, popliteal, posterior tibial and peroneal veins are completely thrombosed. The proximal greater saphenous vein is thrombosed. The thrombus ad ditionally extends into the distal aspect of the left common femoral vein. IMPRESSION: Extensive left-sided deep venous thrombosis involving the distal common femoral vein, sup erficial femoral vein, profunda femoral, popliteal vein and calf veins. Additional thrombosis of the proximal left greater saphenous vein. Findings discussed with the referring clinician's nurse. Report Dictated By: Taiwo Abarca MD at 02/16/2018 3:12 PM Report E-Signed By: Taiwo Abarca MD at 02/16/2018 3:24 PM WSN:[email or web address]
== END ==
LOC: US 13:20
PROVIDERS: ATTEND Orthopaedic Surgery
DX: I82.492 Acute embolism and thrombosis of other specified deep vein of left lower extremity (principal)

== ENCOUNTER 2018-02-21 20:40 | Emergency (ER) | payer OTHER ==
[~2018-02-21 20:40] MED LIST changes: +RIV10 PO; +RIVA15TA PO
[2018-02-21] MEDS ORDERED: NS(*) 0.9% 1000 ML BAG 1,000 ML IV ONE (20:50)
--- NOTE | 2018-02-21 20:54 | ER Report ---
History and Physical Time Seen By MD: 20:51 Hx. of Stated Complaint: BLACK STOOLS HPI/ROS CHIEF COMPLAINT: Rectal bleeding HISTORY OF PRESENT ILLNESS: 33-year-old male with a history of a recent surgery for a fractured left ankle. He subsequently developed DVTs and bilateral pulmonary embolisms. He was admitted on 02/16/18 for 4 days. Patient was discharged home on several toe. Last night she noted a black stool. Today he passed a black stool with bright red blood at the end of the stool. He notes no syncope, no shortness of breath, or dizziness. Patient reports a distant history of infrequent hemorrhoid problems. REVIEW OF SYSTEMS: Respiratory: No cough, no dyspnea. Cardiovascular: No chest pain, no palpitations. Gastrointestinal: As above Musculoskeletal: No back pain. Allergies: Coded Allergies: No Known Drug Allergies (Unverified , 02/21/18) Home Meds Active Scripts Rivaroxaban 15 Mg (XARELTO 15 MG) 15 Mg Tablet, 15 MG PO BID for 18 Days, #36 TAB Prov:MURTAAZ JOINER ASSISTIVE TECHNOLOGY SPECIALIST 02/20/18 Discontinued Scripts Ondansetron (ZOFRAN ODT) 4 Mg Tab.rapdis, 4 MG PO Q6H Y for NAUSEA/VOMITING, # 20 TAB.VEE 0 Refills Prov:LIDYA JADE MD 01/14/18 Hydrocodone Bit/Acetaminophen (HYDROCODON-ACETAMINOPHEN 5-325) 1 Each Tablet, 1 EACH PO Q4H Y for PAIN, #20 TAB 0 Refills Prov:LIDYA JADE MD 01/14/18 Reviewed Nurses Notes: Yes Old Medical Records Reviewed: Yes Hx Smoking: Yes Smoking Status: Light Tobacco Smoker Hx Substance Use Disorder: No Hx Alcohol Use: Yes (few once a week) Constitutional Vital Sign - Last 24 Hours 02/21/18 02/21/18 02/21/18 02/21/18 20:47 21:00 21:15 21:30 Temp 99.2 Pulse 136 102 107 124 Resp 18 B/P (MAP) 163/108 Pulse Ox 95 94 93 95 O2 Delivery Nasal Cannula 02/21/18 02/21/18 02/21/18 21:45 22:00 22:22 Pulse 101 101 91 Resp 14 B/P (MAP) 132/76 (94) Pulse Ox 95 94 92 O2 Delivery Room Air Physical Exam Vital signs stable, afebrile, tachycardic at 136, pulse ox normal General Appearance: The patient is alert, has no immediate need for airway protection and no current signs of toxicity. Skin warm, dry, pink, no acute distress HEENT: Pupils equal and round no injection. Oropharynx without redness or exudate, mucous. Membranes are moist Respiratory: Chest is non tender, lungs are clear to auscultation. Cardiac: regular rate and rhythm Gastrointestinal: Abdomen is soft and non tender, no masses, bowel sounds normal. Musculoskeletal: Neck: Neck is supple and non tender. Extremities have full range of motion and are non tender. Skin: No rashes or lesions. DIFFERENTIAL DIAGNOSIS: After history and physical exam differential diagnosis was considered for lower GI bleeding including but not limited to diverticulosis , tumor, AVM, hemorrhoid and anal fissure. Medical Decision Making Data Points Result Diagram: 02/21/18204902/21/182049 Laboratory Hematology Test 02/21/18 20:50 02/21/18 21:51 Red Blood Count 4.99 M/uL (4.00-5.60) Mean Corpuscular Volume 87.1 fL (80.0-96.0) Mean Corpuscular Hemoglobin 30.7 pg (26.0-33.0) Mean Corpuscular Hemoglobin Concent 35.3 g/dL (32.0-36.0) Red Cell Distribution Width 12.8 % (11.5-14.5) Mean Platelet Volume 6.7 fL (7.2-11.1) Neutrophils (%) (Auto) 63.7 % (39.4-72.5) Lymphocytes (%) (Auto) 24.1 % (17.6-49.6) Monocytes (%) (Auto) 8.6 % (4.1-12.4) Eosinophils (%) (Auto) 2.9 % (0.4-6.7) Basophils (%) (Auto) 0.7 % (0.3-1.4) Nucleated RBC Relative Count (auto) 0.0 /100WBC Neutrophils # (Auto) 6.7 K/uL (2.0-7.4) Lymphocytes # (Auto) 2.6 K/uL (1.3-3.6) Monocytes # (Auto) 0.9 K/uL (0.3-1.0) Eosinophils # (Auto) 0.3 K/uL (0.0-0.5) Basophils # (Auto) 0.1 K/uL (0.0-0.1) Nucleated RBC Absolute Count (auto) 0.00 K/uL Prothrombin Time 16.6 seconds (12.0-14.4) Prothromb Time International Ratio 1.33 Activated Partial Thromboplast Time 41 seconds (23-35) Sodium Level 139 mmol/L (137-145) Potassium Level 3.5 mmol/L (3.5-5.0) Chloride Level 100 mmol/L (98-107) Carbon Dioxide Level 26 mmol/L (22-30) Blood Urea Nitrogen 10 mg/dl (9-21) Creatinine 0.80 mg/dl (0.66-1.25) Glomerular Filtration Rate Calc > 60.0 Random Glucose 158 mg/dl (75-110) Calcium Level 8.7 mg/dl (8.4-10.2) Total Bilirubin 0.3 mg/dl (0.2-1.3) Aspartate Amino Transf (AST/SGOT) 91 U/L (0-35) Alanine Aminotransferase (ALT/SGPT) 152 U/L (0-56) Alkaline Phosphatase 91 U/L (0-126) Total Protein 7.7 gm/dl (6.3-8.2) Albumin 3.5 g/dl (3.5-5.0) Amylase Level 50 U/L (0-110) Lipase 234 U/L (23-300) Urine Color Yellow Urine Clarity Clear Urine pH 6.0 pH (4.8-9.5) Urine Specific Shelby 1.023 Urine Protein Negative mg/dL (NEGATIVE) Urine Glucose (UA) Negative mg/dL (NEGATIVE) Urine Ketones Negative mg/dL (NEGATIVE) Urine Blood Moderate (NEGATIVE) Urine Nitrite Negative (NEGATIVE) Urine Bilirubin Negative (NEGATIVE) Urine Urobilinogen Negative mg/dL (0.2-1.9) Urine Leukocyte Esterase Negative (NEGATIVE) Urine RBC 1 /HPF (0-2/HPF) Urine WBC 1 /HPF (0-5/HPF) Urine Squamous Epithelial Cells None /LPF (</=FEW) Urine Bacteria Negative /HPF (NONE-FEW) Urine Mucus Few /HPF (NONE-FEW) Chemistry Test 02/21/18 20:50 02/21/18 21:51 White Blood Count 10.6 k/uL (4.5-11.0) Red Blood Count 4.99 M/uL (4.00-5.60) Hemoglobin 15.3 g/dL (14.0-18.0) Hematocrit 43.5 % (42.0-52.0) Mean Corpuscular Volume 87.1 fL (80.0-96.0) Mean Corpuscular Hemoglobin 30.7 pg (26.0-33.0) Mean Corpuscular Hemoglobin Concent 35.3 g/dL (32.0-36.0) Red Cell Distribution Width 12.8 % (11.5-14.5) Platelet Count 371 K/uL (150-450) Mean Platelet Volume 6.7 fL (7.2-11.1) Neutrophils (%) (Auto) 63.7 % (39.4-72.5) Lymphocytes (%) (Auto) 24.1 % (17.6-49.6) Monocytes (%) (Auto) 8.6 % (4.1-12.4) Eosinophils (%) (Auto) 2.9 % (0.4-6.7) Basophils (%) (Auto) 0.7 % (0.3-1.4) Nucleated RBC Relative Count (auto) 0.0 /100WBC Neutrophils # (Auto) 6.7 K/uL (2.0-7.4) Lymphocytes # (Auto) 2.6 K/uL (1.3-3.6) Monocytes # (Auto) 0.9 K/uL (0.3-1.0) Eosinophils # (Auto) 0.3 K/uL (0.0-0.5) Basophils # (Auto) 0.1 K/uL (0.0-0.1) Nucleated RBC Absolute Count (auto) 0.00 K/uL Prothrombin Time 16.6 seconds (12.0-14.4) Prothromb Time International Ratio 1.33 Activated Partial Thromboplast Time 41 seconds (23-35) Glomerular Filtration Rate Calc > 60.0 Calcium Level 8.7 mg/dl (8.4-10.2) Total Bilirubin 0.3 mg/dl (0.2-1.3) Aspartate Amino Transf (AST/SGOT) 91 U/L (0-35) Alanine Aminotransferase (ALT/SGPT) 152 U/L (0-56) Alkaline Phosphatase 91 U/L (0-126) Total Protein 7.7 gm/dl (6.3-8.2) Albumin 3.5 g/dl (3.5-5.0) Amylase Level 50 U/L (0-110) Lipase 234 U/L (23-300) Urine Color Yellow Urine Clarity Clear Urine pH 6.0 pH (4.8-9.5) Urine Specific Shelby 1.023 Urine Protein Negative mg/dL (NEGATIVE) Urine Glucose (UA) Negative mg/dL (NEGATIVE) Urine Ketones Negative mg/dL (NEGATIVE) Urine Blood Moderate (NEGATIVE) Urine Nitrite Negative (NEGATIVE) Urine Bilirubin Negative (NEGATIVE) Urine Urobilinogen Negative mg/dL (0.2-1.9) Urine Leukocyte Esterase Negative (NEGATIVE) Urine RBC 1 /HPF (0-2/HPF) Urine WBC 1 /HPF (0-5/HPF) Urine Squamous Epithelial Cells None /LPF (</=FEW) Urine Bacteria Negative /HPF (NONE-FEW) Urine Mucus Few /HPF (NONE-FEW) Coagulation Test 02/21/18 20:50 Prothrombin Time 16.6 seconds Prothromb Time International Ratio 1.33 Activated Partial Thromboplast Time 41 seconds Urinalysis Test 02/21/18 21:51 Urine Color Yellow Urine Clarity Clear Urine pH 6.0 pH (4.8-9.5) Urine Specific Shelby 1.023 Urine Protein Negative mg/dL (NEGATIVE) Urine Glucose (UA) Negative mg/dL (NEGATIVE) Urine Ketones Negative mg/dL (NEGATIVE) Urine Blood Moderate (NEGATIVE) Urine Nitrite Negative (NEGATIVE) Urine Bilirubin Negative (NEGATIVE) Urine Urobilinogen Negative mg/dL (0.2-1.9) Urine Leukocyte Esterase Negative (NEGATIVE) Urine RBC 1 /HPF (0-2/HPF) Urine WBC 1 /HPF (0-5/HPF) Urine Squamous Epithelial Cells None /LPF (</=FEW) Urine Bacteria Negative /HPF (NONE-FEW) Urine Mucus Few /HPF (NONE-FEW) ED Course/Re-evaluation Clinical Indication for ER IV: Hydration, IV Access ED Course Patient was admitted to an examination room. H&P was done. The differential diagnoses was considered. Patient with black stools concerning for GI blood loss. Patient recently diagnosed with pulmonary embolisms and was started on Xarelto patient's advised to follow-up with as soon as possible and have frequent follow-ups to monitor his CBC and his stool. Patient may need to follow up with GI for endoscopy. He may need to consider alternative therapies for his pulmonary embolisms. Decision to Disposition Date: Feb 21, 2018 Decision to Disposition Time: 22:05 Depart Departure Latest Vital Signs Vital Signs Date Time Temp Pulse Resp B/P (MAP) Pulse Ox O2 Delivery O2 Flow Rate FiO2 02/21/18 22:22 91 14 132/76 (94) 92 Room Air 02/21/18 20:47 99.2 Impression: Primary Impression: Rectal bleeding Additional Impressions: Pulmonary embolism Anticoagulation management encounter Condition: Improved Disposition: HOME OR SELF-CARE Referrals: FREDA DE GUZMAN DO Patient Instructions: Rectal Bleeding (ED) Additional Instructions: Follow-up with Dr. De Guzman and every couple of days to monitor your blood count Return to the ER for any heavy rectal bleeding, such as cups of blood, feeling lightheaded or dizzy Problem Qualifiers Additional Impressions: Pulmonary embolism Pulmonary embolism type: other Chronicity: acute Acute cor pulmonale presence: without acute cor pulmonale Qualified Codes: I26.99 - Other pulmonary embolism without acute cor pulmonale REGINE JONES DO Feb 21, 2018 20:54
[2018-02-21 21:12] LABS: PLATELET COUNT, AUTOMATED 371 K/uL (150-450)
[2018-02-21 21:19] LABS: INR 1.33
[2018-02-21 22:22] VITALS: BP 132/76
== END 2018-02-21 22:25 | disposition home or self-care (01) ==
LOC: ER 21:11
DX: K92.1 Melena (principal); I26.99 Other pulmonary embolism without acute cor pulmonale; Z79.01 Long term (current) use of anticoagulants
CPT/HCPCS: 81001; 82150; 83690; 85025; 85610; 85730; 96360; 99283; J7030; 82040; 82247; 82310; 82374; 82435; 82565; 82947; 84075; 84132; 84155; 84295; 84450; 84460; 84520

== ENCOUNTER → 2018-11-29 | Outpatient (CLI) | payer OTHER ==
--- NOTE | 2018-11-29 11:46 | RADIOLOGY IMAGING REPORT ---
FACILITY: [facility] - [place] PATIENT NAME: Timothy Mchugh : 1985 MR: [id number] V: [id number] EXAM DATE: ORDERING PHYSICIAN: RANJANA APONTE TECHNOLOGIST: Location: [facility] Patient: Timothy Mchugh : 1985 Visit/Account:[id number] Date of Sevice: 11/29/2018 FINGER LEFT 3RD DIGIT HISTORY: PIP pain x3 days. ADDITIONAL HISTORY: None. COMPARISON: None. FINDINGS: 3 views were obtained of the left third digit. There is soft tissue swelling around the PIP joint. No radiopaque foreign body or abnormal calcifications. PIP joint is well maintained. DIP joint is w ithin normal limits. There is no evidence of acute or subacute fracture. No osteophytes or erosions . IMPRESSION: 1. Soft tissue swelling without evidence of fracture. 2. No significant degenerative changes or evidence of an erosive or inflammatory arthritis. Report Dictated By: Erica Arshad MD at 11/29/2018 11:39 AM Report E-Signed By: Erica Arshad MD at 11/29/2018 11:42 AM [id number]
== END ==
LOC: RAD 10:54
PROVIDERS: ATTEND Family Medicine
DX: M79.645 Pain in left finger(s) (principal); R22.42 Localized swelling, mass and lump, left lower limb

== ENCOUNTER 2019-02-19 10:22 | Emergency (ER) | payer OTHER ==
--- NOTE | 2019-02-19 11:07 | ER Report ---
History and Physical Time Seen By MD: 11:04 Hx. of Stated Complaint: patient reports upper back pain and SOB. was hospitalized with PE last year. also has right calf pain HPI/ROS CHIEF COMPLAINT: Concern for possible pulmonary embolism or DVT. HISTORY OF PRESENT ILLNESS: She does not otherwise healthy 34-year-old male who states that he has some concerns about the possibility of a DVT or PE he had both approximately a year ago that was after a surgical procedure so hypercoagulation panel was not worked up. He was treated on anticoagulation for a period of 6 months and has now discontinued. He is now having pain to his right calf and right thigh also complaining of some chest pain and shortness of breath worse with exertion. He is no prior cardiac history no history of LA. He is not a smoker. He denies any infectious type symptoms. He does admit to some night sweats which is similar to presentation with his PE a year ago. REVIEW OF SYSTEMS: Constitutional: No fever, no chills. Eyes: No discharge. ENT: No sore throat. Cardiovascular: Chest pain Respiratory: Exertional dyspnea Gastrointestinal: No abdominal pain, no vomiting. Genitourinary: No hematuria. Musculoskeletal: Right lower extremity pain Skin: No rashes. Neurological: No headache. Allergies: Coded Allergies: No Known Drug Allergies (Unverified , 02/21/18) Home Meds Active Scripts Oxycodone Hcl/Acetaminophen (PERCOCET 5-325 MG TABLET) 1 Each Tablet, 1 EACH PO Q4H for PAIN, #30 TAB 0 Refills Prov:SALLY KRAUS MD 02/19/19 Rivaroxaban 20 Mg (XARELTO 20 MG) 20 Mg Tablet, 20 MG PO QDAY for 90 Days, #90 TAB 3 Refills Start after completion of the Xarelto 15mg twice per day is complete Prov:SALLY KRAUS MD 02/19/19 Rivaroxaban 15 Mg (XARELTO 15 MG) 15 Mg Tablet, 15 MG PO BID for 21 Days, #41 TAB 0 Refills First dose given in ER Prov:SALLY KRAUS MD 02/19/19 Discontinued Scripts Rivaroxaban 15 Mg (XARELTO 15 MG) 15 Mg Tablet, 15 MG PO BID for 18 Days, #36 TAB Prov:MURTAZA JOINER 02/20/18 Past Medical/Surgical History History of PE 1 year ago Hx Smoking: Yes Smoking Status: Light Tobacco Smoker Hx Substance Use Disorder: No Hx Alcohol Use: Yes (few once a week) Constitutional Vital Sign - Last 24 Hours 02/19/19 02/19/19 02/19/19 02/19/19 10:22 10:26 10:28 10:30 Pulse 82 B/P (MAP) 146/97 (113) 133/90 (104) O2 Delivery Room Air 02/19/19 02/19/19 02/19/19 02/19/19 10:37 10:52 11:00 11:07 Pulse 112 86 82 Resp 53 29 11 B/P (MAP) 126/45 (72) Pulse Ox 93 90 90 02/19/19 02/19/19 02/19/19 02/19/19 11:22 11:30 11:37 11:52 Pulse 70 75 77 Resp 34 26 B/P (MAP) 113/76 (88) Pulse Ox 89 90 02/19/19 02/19/19 02/19/19 02/19/19 12:00 12:07 12:12 12:32 Pulse 79 75 74 Resp 26 18 B/P (MAP) 123/75 (91) Pulse Ox 90 91 91 02/19/19 02/19/19 12:52 13:12 Pulse 73 80 Resp 17 14 Pulse Ox 91 91 Physical Exam General/Constitutional: Patient is awake, alert, nontoxic and in no acute respiratory distress. Head: Normocephalic and atraumatic. Eyes: Conjunctival clear, Pupils are equal and reactive to light. Extraocular muscles are intact and symmetrical. Sclera are clear and anicteric. Neck: Supple, no adenopathy. Cardiovascular: Heart is regular rate and rhythm without audible murmurs, rubs or gallops. Pulmonary: Lungs are clear to auscultation bilaterally. There are no wheezes, rales, or rhonchi. Chest rise is symmetrical Abdomen: Soft, nontender, no guarding or peritoneal signs. Extremities: No gross deformities, No peripheral cyanosis. Able to move all 4 extremities. Neuro: Alert and oriented X3, Cranial nerves 2 thru 12 are intact and symmetrical. Patient has normal gait. Skin: No rashes, skin is warm dry and well perfused. Medical Decision Making Data Points Result Diagram: 02/19/19 1035 02/19/19 1035 Laboratory Hematology Test 3/25/19 10:35 02/19/19 12:15 Red Blood Count 5.19 M/uL (4.00-5.60) Mean Corpuscular Volume 91.8 fL (80.0-96.0) Mean Corpuscular Hemoglobin 31.5 pg (26.0-33.0) Mean Corpuscular Hemoglobin Concent 34.3 g/dL (32.0-36.0) Red Cell Distribution Width 12.9 % (11.5-14.5) Mean Platelet Volume 7.6 fL (7.2-11.1) Neutrophils (%) (Auto) 74.9 % (39.4-72.5) Lymphocytes (%) (Auto) 13.1 % (17.6-49.6) Monocytes (%) (Auto) 10.2 % (4.1-12.4) Eosinophils (%) (Auto) 1.6 % (0.4-6.7) Basophils (%) (Auto) 0.2 % (0.3-1.4) Nucleated RBC Relative Count (auto) 0.0 /100WBC Neutrophils # (Auto) 8.0 K/uL (2.0-7.4) Lymphocytes # (Auto) 1.4 K/uL (1.3-3.6) Monocytes # (Auto) 1.1 K/uL (0.3-1.0) Eosinophils # (Auto) 0.2 K/uL (0.0-0.5) Basophils # (Auto) 0.0 K/uL (0.0-0.1) Nucleated RBC Absolute Count (auto) 0.00 K/uL Sodium Level 139 mmol/L (137-145) Potassium Level 3.8 mmol/L (3.5-5.0) Chloride Level 106 mmol/L (98-107) Carbon Dioxide Level 21 mmol/L (22-30) Blood Urea Nitrogen 11 mg/dl (9-21) Creatinine 0.90 mg/dl (0.66-1.25) Glomerular Filtration Rate Calc > 60.0 Random Glucose 108 mg/dl (75-110) Calcium Level 9.4 mg/dl (8.4-10.2) Total Bilirubin 0.5 mg/dl (0.2-1.3) Aspartate Amino Transf (AST/SGOT) 29 U/L (0-35) Alanine Aminotransferase (ALT/SGPT) 29 U/L (0-56) Alkaline Phosphatase 67 U/L (0-126) Troponin I < 0.012 ng/ml Total Protein 8.1 g/dl (6.3-8.2) Albumin 4.5 g/dl (3.5-5.0) Prothrombin Time 13.5 seconds (12.0-14.4) Prothromb Time International Ratio 1.03 Activated Partial Thromboplast Time 33 seconds (23-35) Fibrinogen 372 mg/dL (169-449) D-Dimer Quantitative (PE/DVT) 11.99 ug/ml (0-0.50) Chemistry Test 02/19/19 10:35 02/19/19 12:15 White Blood Count 10.6 k/uL (4.5-11.0) Red Blood Count 5.19 M/uL (4.00-5.60) Hemoglobin 16.3 g/dL (14.0-18.0) Hematocrit 47.6 % (42.0-52.0) Mean Corpuscular Volume 91.8 fL (80.0-96.0) Mean Corpuscular Hemoglobin 31.5 pg (26.0-33.0) Mean Corpuscular Hemoglobin Concent 34.3 g/dL (32.0-36.0) Red Cell Distribution Width 12.9 % (11.5-14.5) Platelet Count 205 K/uL (150-450) Mean Platelet Volume 7.6 fL (7.2-11.1) Neutrophils (%) (Auto) 74.9 % (39.4-72.5) Lymphocytes (%) (Auto) 13.1 % (17.6-49.6) Monocytes (%) (Auto) 10.2 % (4.1-12.4) Eosinophils (%) (Auto) 1.6 % (0.4-6.7) Basophils (%) (Auto) 0.2 % (0.3-1.4) Nucleated RBC Relative Count (auto) 0.0 /100WBC Neutrophils # (Auto) 8.0 K/uL (2.0-7.4) Lymphocytes # (Auto) 1.4 K/uL (1.3-3.6) Monocytes # (Auto) 1.1 K/uL (0.3-1.0) Eosinophils # (Auto) 0.2 K/uL (0.0-0.5) Basophils # (Auto) 0.0 K/uL (0.0-0.1) Nucleated RBC Absolute Count (auto) 0.00 K/uL Glomerular Filtration Rate Calc > 60.0 Calcium Level 9.4 mg/dl (8.4-10.2) Total Bilirubin 0.5 mg/dl (0.2-1.3) Aspartate Amino Transf (AST/SGOT) 29 U/L (0-35) Alanine Aminotransferase (ALT/SGPT) 29 U/L (0-56) Alkaline Phosphatase 67 U/L (0-126) Troponin I < 0.012 ng/ml Total Protein 8.1 g/dl (6.3-8.2) Albumin 4.5 g/dl (3.5-5.0) Prothrombin Time 13.5 seconds (12.0-14.4) Prothromb Time International Ratio 1.03 Activated Partial Thromboplast Time 33 seconds (23-35) Fibrinogen 372 mg/dL (169-449) D-Dimer Quantitative (PE/DVT) 11.99 ug/ml (0-0.50) Coagulation Test 02/19/19 10:35 02/19/19 12:15 Prothrombin Time 13.5 seconds Prothromb Time International Ratio 1.03 Activated Partial Thromboplast Time 33 seconds Fibrinogen 372 mg/dL D-Dimer Quantitative (PE/DVT) 11.99 ug/ml EKG/Imaging Imaging FACILITY: [facility] PATIENT NAME: Timothy Mchugh : 1985 MR: [id number] V: [id number] EXAM DATE: ORDERING PHYSICIAN: SALLY KRAUS TECHNOLOGIST: Location: [facility] Patient: Timothy Mchugh : 1985 Visit/Account:[id number] Date of Sevice: 02/19/2019 CT angiogram chest with contrast Indication: Chest pain. Right lower extremity DVT. History of PE. Comparison: 02/16/2018 Technique: Axial CT images are obtained through the chest after administration of 75 mL Isovue 370 IV contrast. Reformatted coronal and sagittal images were reviewed as well as coronal MIP images. One of the following dose optimization techniques was utilized in the performance of this exam: Automated exposure control; adjustment of the mA and/or kV according to the patient's size; or use of an iterative reconstruction technique. Specific details can be referenced in the facility's radiology CT exam operational policy. FINDINGS: There are extensive bilateral pulmonary emboli identified. Beginning on the left, a filling defect is seen within the left main pulmonary artery which extends into the left upper lobe pulmonary artery and into the left lower lobe pulmonary artery. Segmental filling defects involve the lower lobe segmental pulmonary arteries. On the right side, there is a filling defect within the right main pulmonary artery which extends into the right upper lobe and the right lower lobe pulmonary arteries as well as the segmental vessels in both lobes. No definite filling defect within the right middle lobe. There is elevated right heart pressure with a right ventricle to left ventricle ratio measuring 1.1. With respect to the lung windows, early pulmonary infarct is seen within the periphery of the right lower lobe. No other definitive peripheral infiltrate. No air bronchograms. No pleural effusion or pneumothorax. There is no axillary adenopathy seen. There are no enlarged mediastinal nodes. A nonspecific, mildly enlarged right hilar node measures 1.4 cm in size. No acute abnormality seen within the upper abdomen. Schmorl's nodes involve the thoracic spine at multiple levels. IMPRESSION: 1. Fairly extensive bilateral pulmonary emboli as described above with evidence of elevated right heart pressures with mild elevation of the right ventricle to left ventricle ratio. 2. Developing right lower lobe pulmonary infarct. 3. Mildly enlarged right hilar lymph node which is nonspecific. Critical results were discussed with SALLY KRAUS at 02/19/2019 12:37 PM. Report Dictated By: Gary Collins at 02/19/2019 12:22 PM Report E-Signed By: Gary Collins at 02/19/2019 12:37 PM WSN:[email or web address] FACILITY: [facility] PATIENT NAME: Timothy Mchugh : 1985 MR: [id number] V: [id number] EXAM DATE: ORDERING PHYSICIAN: SALLY KRAUS TECHNOLOGIST: Location: [facility] Patient: Timothy Mchugh : 1985 Visit/Account:[id number] Date of Sevice: 02/19/2019 Venous Doppler ultrasound right lower extremity Indication: Right leg pain and history of left leg DVT. Comparison: None Available Findings: Duplex Doppler and color flow imaging was performed. The common femoral and femoral veins are patent and compressible with normal Doppler wave forms. The posterior tibial and peroneal veins are patent in the calf. At the level of the knee, the popliteal vein is partially compressible. Echogenic filling defects are seen within the vessel consistent with acute DVT. This is nonocclusive as there is some residual color flow seen. IMPRESSION: 1. Nonocclusive, acute DVT within the right popliteal vein. Results were discussed with SALLY KRAUS at 02/19/2019 11:46 AM. Report Dictated By: Gary Collins at 02/19/2019 11:39 AM Report E-Signed By: Gary Collins at 02/19/2019 11:46 AM WSN:ANGIE ED Course/Re-evaluation ED Course Plan at this time will be hypercoagulable workup along with CT of chest and [facility] lower extremity Doppler ultrasound. Re-evaluation 02/19/2019 1:06:25 pm patient resting comfortably. I spoke with Dr. Philip with regard to this patient's CT scan findings. Plan will be to initiate Xareltotherapy 50 mg twice a day for 21 days switching most likely to lifelong Xarelto 20 mg daily. I did call and speak with Dr. De Guzman, he is aware of the diagnosis and agrees with plan to start Xarelto, initiated oxygen therapy and follow-up the patient in 2-4 weeks. He was given guidance to return to the emergency department for worsening chest pain, shortness of breath or fever. Decision to Disposition Date: Feb 19, 2019 Decision to Disposition Time: 13:04 Depart Departure Latest Vital Signs Vital Signs Date Time Temp Pulse Resp B/P (MAP) Pulse Ox O2 Delivery O2 Flow Rate FiO2 02/19/19 13:12 80 14 91 02/19/19 12:00 123/75 (91) 02/19/19 10:26 Room Air Impression: Primary Impression: Pulmonary embolism Additional Impression: DVT (deep venous thrombosis) Condition: Improved Disposition: HOME OR SELF-CARE Referrals: FREDA DE GUZMAN DO (PCP) schedule a follow up appointment in the next 2-4 weeks New Scripts Oxycodone Hcl/Acetaminophen (PERCOCET 5-325 MG TABLET) 1 Each Tablet 1 EACH PO Q4H for PAIN, #30 TAB 0 Refills Prov: SALLY KRAUS MD 02/19/19 Rivaroxaban 20 Mg (XARELTO 20 MG) 20 Mg Tablet 20 MG PO QDAY for 90 Days, #90 TAB 3 Refills Start after completion of the Xarelto 15mg twice per day is complete Prov: SALLY KRAUS MD 02/19/19 Rivaroxaban 15 Mg (XARELTO 15 MG) 15 Mg Tablet 15 MG PO BID for 21 Days, #41 TAB 0 Refills First dose given in ER Prov: SALLY KRAUS MD 02/19/19 Departure Forms: ER Transition Record, Home Oxygen, Nebulizer RX, Home Oxygen Company Chosen by Patient: Durable Medical Equipment-Oxygen: Oxygen Concentrator, Portable Oxygen Gas Reason for Use/Diagnosis: pulmonary embolism Start Date of the Order: Feb 19, 2019 Dosage or Concentration (if applicable) - LPM: 2 Route of Administration (if applicable): Nasal Cannula Frequency of Use: Continuous Duration Home O2 Required: 4 Duration Units: Weeks Room Air Oxygen Saturation: 88 ER Prescribing Physician's Name: Sally Kraus NPI Numbers for Local ER MDs: Nayana [id number] Medications Reconciliation, Off Work/School Form, School or Work Release?: Work Number of days to be released: 2 Patient Portal Information Patient Instructions: Pulmonary Embolism (GEN) Additional Instructions: Wear oxygen as directed Return to the emergency department if her chest pain worsens, if he feels more short of breath, if he develops fever, or if you have a racing heart rate. Problem Qualifiers Primary Impression: Pulmonary embolism Pulmonary embolism type: other Chronicity: acute Acute cor pulmonale presence: with acute cor pulmonale Qualified Codes: I26.09 - Other pulmonary embolism with acute cor pulmonale Additional Impression: DVT (deep venous thrombosis) DVT location: lower extremity Affected thrombotic vein of extremity: popliteal Chronicity: acute Laterality: right Qualified Codes: I82.431 - Acute embolism and thrombosis of right popliteal vein SALLY KRAUS MD Feb 19, 2019 11:07
[2019-02-19 11:18] LABS: PLATELET COUNT, AUTOMATED 205 K/uL (150-450)
[2019-02-19] MEDS ORDERED: IOPAMIDOL 76% 150 ML INFUS BTL 150 ML ONE (11:30)
[2019-02-19] MEDS ORDERED: NS 0.9% 25 ML BAG 50 ML ONE (11:31)
--- NOTE | 2019-02-19 11:50 | RADIOLOGY IMAGING REPORT ---
FACILITY: [facility] [place] PATIENT NAME: Timothy Mchugh : 1985 MR: [id number] V: [id number] EXAM DATE: ORDERING PHYSICIAN: SALLY SWANSON TECHNOLOGIST: Location: [facility] Patient: Timothy Mchugh : 1985 Visit/Account:[id number] Date of Sevice: 02/19/2019 Venous Doppler ultrasound right lower extremity Indication: Right leg pain and history of left leg DVT. Comparison: None Available Findings: Duplex Doppler and color flow imaging was performed. The common femoral and femoral veins are patent and compressible with normal Doppler wave forms. The posterior tibial and peroneal veins are patent in the calf. At the level of the knee, the popliteal vein is partially compressible. Echogenic filling defects ar e seen within the vessel consistent with acute DVT. This is nonocclusive as there is some residual c olor flow seen. IMPRESSION: 1. Nonocclusive, acute DVT within the right popliteal vein. Results were discussed with SALLY SWANSON at 02/19/2019 11:46 AM. Report Dictated By: Gary Collins at 02/19/2019 11:39 AM Report E-Signed By: Gary Collins at 02/19/2019 11:46 AM WSN:[email or web address]
[2019-02-19] MEDS ORDERED: RIVAROXABAN 10 MG TAB PO ONE (12:05)
--- NOTE | 2019-02-19 12:24 | EKG ---
[place] [facility] [place] MAHESH VALENZUELA : [id number] MR: [id number] V: [id number] EXAM DATE: ORDERING PHYSICIAN: SALLY SWANSON TECHNOLOGIST: KHALIF [place] Reason : CP Blood Pressure : / mmHG Vent. Rate : 095 BPM Atrial Rate : 095 BPM P-R Int : 142 ms QRS Dur : 096 ms QT Int : 350 ms P-R-T Axes : 067 051 052 degrees QTc Int : 439 ms Normal sinus rhythm Normal ECG When compared with ECG of 16-FEB-2018 19:36, No significant change was found Confirmed by RANJANA GARCIA ([id number]) on 02/19/2019 7:23:55 PM Referred By: KIKI Confirmed By:RANJANA GARCIA
[2019-02-19] MEDS ORDERED: KETOROLAC 15 MG/ML VIAL IVP ONE (12:40)
--- NOTE | 2019-02-19 12:42 | RADIOLOGY IMAGING REPORT ---
FACILITY: [facility] - [place], [place] PATIENT NAME: Timothy Mchugh : 1985 MR: [id number] V: [id number] EXAM DATE: ORDERING PHYSICIAN: SALLY SWANSON TECHNOLOGIST: Location: Patient: Timothy Mchugh : 1985 Visit/Account:[id number] Date of Sevice: 02/19/2019 CT angiogram chest with contrast Indication: Chest pain. Right lower extremity DVT. History of PE. Comparison: 02/16/2018 Technique: Axial CT images are obtained through the chest after administration of 75 mL Isovue 370 IV contrast. Reformatted coronal and sagittal images were reviewed as well as coronal MIP images. One o f the following dose optimization techniques was utilized in the performance of this exam: Automated exposure control; adjustment of the mA and/or kV according to the patient's size; or use of an iterat emily reconstruction technique. Specific details can be referenced in the facility's radiology CT exa m operational policy. FINDINGS: There are extensive bilateral pulmonary emboli identified. Beginning on the left, a filling defect is seen within the left main pulmonary artery which extends into the left upper lobe pulmonary artery a nd into the left lower lobe pulmonary artery. Segmental filling defects involve the lower lobe segme ntal pulmonary arteries. On the right side, there is a filling defect within the right main pulmonar y artery which extends into the right upper lobe and the right lower lobe pulmonary arteries as well as the segmental vessels in both lobes. No definite filling defect within the right middle lobe. Th ere is elevated right heart pressure with a right ventricle to left ventricle ratio measuring 1.1. With respect to the lung windows, early pulmonary infarct is seen within the periphery of the right l ower lobe. No other definitive peripheral infiltrate. No air bronchograms. No pleural effusion or pneumothorax. There is no axillary adenopathy seen. There are no enlarged mediastinal nodes. A nonspecific, mildl y enlarged right hilar node measures 1.4 cm in size. No acute abnormality seen within the upper abdomen. Schmorl's nodes involve the thoracic spine at multiple levels. IMPRESSION: 1. Fairly extensive bilateral pulmonary emboli as described above with evidence of elevated right he art pressures with mild elevation of the right ventricle to left ventricle ratio. 2. Developing right lower lobe pulmonary infarct. 3. Mildly enlarged right hilar lymph node which is nonspecific. Critical results were discussed with SALLY SWANSON at 02/19/2019 12:37 PM. Report Dictated By: Gary Collins at 02/19/2019 12:22 PM Report E-Signed By: Gary Collins at 02/19/2019 12:37 PM WSN:[email or web address]
[2019-02-19] MEDS ORDERED: RIVA20TA PO (13:01)
[2019-02-19] MEDS ORDERED: RIVA15TA PO (13:01)
[2019-02-19] MEDS ORDERED: OXYC-865 PO (13:01)
[2019-02-19 13:04] LABS: INR 1.03
[2019-02-19 13:30] VITALS: BP 128/85
== END 2019-02-19 13:59 | disposition home or self-care (01) ==
LOC: ER 10:50
DX: I26.09 Other pulmonary embolism with acute cor pulmonale (principal); I82.431 Acute embolism and thrombosis of right popliteal vein
CPT/HCPCS: 36415; 71275; 81241; 81291; 83090; 84484; 85025; 85300; 85303; 85306; 85379; 85384; 85610; 85730; 86147; 93005; 93971; 96374; 99284; J1885; Q9967; 82040; 82247; 82310; 82374; 82435; 82565; 82947; 84075; 84132; 84155; 84295; 84450; 84460; 84520

== ENCOUNTER 2019-02-22 10:22 | Emergency (ER) | payer OTHER ==
[~2019-02-22 10:22] MED LIST changes: +OXYC-865 PO; +RIVA20TA PO
--- NOTE | 2019-02-22 10:58 | ER Report ---
History and Physical Time Seen By MD: 10:58 Hx. of Stated Complaint: DIAGNOSISED WITH DOUBLE PE'S ON TUESDAY, DVT IN RT LEG. HAS PAIN IN CHEST, DIFF BREATHING, PAIN BEHIND RT KNEE HPI/ROS CHIEF COMPLAINT: Shortness of breath HISTORY OF PRESENT ILLNESS: Patient is a 34-year-old male here with complaints of increasing dyspnea in the setting of bilateral pulmonary embolisms and a right-sided DVT in the right lower extremity diagnosed on Tuesday started on xarelto Tuesday. Patient reportedly had a DVT in the left lower extremity post operative approximately one year ago and was placed on Xarelto for 6 months. Patient reports having increasing dyspnea over the subsequent days. Patient is on nocturnal oxygen supplementation which is new for the patient. Denies chest pain, hemoptysis, fevers, chills. REVIEW OF SYSTEMS: Constitutional: No fever, no chills. Eyes: No discharge. ENT: No sore throat. Cardiovascular: + Chest tightness, no palpitations. Respiratory: + cough, + shortness of breath. Gastrointestinal: No abdominal pain, no vomiting. Genitourinary: No hematuria. Musculoskeletal: No back pain. Skin: No rashes. Neurological: No headache. Allergies: Coded Allergies: No Known Drug Allergies (Unverified , 02/22/19) Home Meds Active Scripts Oxycodone Hcl/Acetaminophen (PERCOCET 5-325 MG TABLET) 1 Each Tablet, 1 EACH PO Q4H for PAIN, #30 TAB 0 Refills Prov:SALLY SWANSON MD 02/19/19 Rivaroxaban 20 Mg (XARELTO 20 MG) 20 Mg Tablet, 20 MG PO QDAY for 90 Days, #90 TAB 3 Refills Start after completion of the Xarelto 15mg twice per day is complete Prov:SALLY SWANSON MD 02/19/19 Rivaroxaban 15 Mg (XARELTO 15 MG) 15 Mg Tablet, 15 MG PO BID for 21 Days, #41 TAB 0 Refills First dose given in ER Prov:SALLY SWANSON MD 02/19/19 Discontinued Scripts Rivaroxaban 15 Mg (XARELTO 15 MG) 15 Mg Tablet, 15 MG PO BID for 18 Days, #36 TAB Prov:MURTAZA JOINER 02/20/18 Hx Smoking: Yes Smoking Status: Light Tobacco Smoker Hx Substance Use Disorder: No Hx Alcohol Use: Yes (few once a week) Constitutional Vital Sign - Last 24 Hours 02/22/19 02/22/19 02/22/19 02/22/19 10:22 10:28 10:28 10:37 Temp 97.6 Pulse ??? 93 81 Resp 14 B/P (MAP) 138/85 (102) 138/85 Pulse Ox 93 94 O2 Delivery Room Air 02/22/19 02/22/19 02/22/19 02/22/19 10:52 11:07 11:09 11:14 Pulse 76 76 75 72 Pulse Ox 95 90 93 02/22/19 02/22/19 02/22/19 02/22/19 11:19 11:29 11:44 11:59 Pulse 77 75 72 Resp 8 17 0 Pulse Ox 94 95 94 O2 Flow Rate 2.0 02/22/19 02/22/19 12:14 12:29 Pulse 71 65 Resp 9 11 Pulse Ox 97 95 Physical Exam General Appearance: The patient is alert, has no immediate need for airway protection and no signs of toxicity. Uncomfortable appearing Eyes: Pupils equal and round no pallor or injection. ENT, Mouth: Mucous membranes are moist. Respiratory: There are no retractions, lungs are clear to auscultation. Maintaining oxygen saturations greater than 92% on room air Cardiovascular: Regular rate and rhythm. [ ] Gastrointestinal: Abdomen is soft and non tender, no masses, bowel sounds normal. Neurological: No focal neurological findings Skin: Warm and dry, no rashes. Musculoskeletal: Neck is supple non tender. Extremities are nontender, nonswollen and have full range of motion. DIFFERENTIAL DIAGNOSIS: After history and physical exam differential diagnosis was considered for shortness of breath including but not limited to pulmonary infectious process, COPD, asthma, pulmonary embolus and congestive heart failure. Medical Decision Making Data Points Result Diagram: 02/22/19 1030 02/22/19 1030 Laboratory Hematology Test 02/22/19 10:30 Red Blood Count 5.22 M/uL (4.00-5.60) Mean Corpuscular Volume 92.7 fL (80.0-96.0) Mean Corpuscular Hemoglobin 31.5 pg (26.0-33.0) Mean Corpuscular Hemoglobin Concent 34.0 g/dL (32.0-36.0) Red Cell Distribution Width 13.1 % (11.5-14.5) Mean Platelet Volume 7.4 fL (7.2-11.1) Neutrophils (%) (Auto) 67.9 % (39.4-72.5) Lymphocytes (%) (Auto) 16.9 % (17.6-49.6) Monocytes (%) (Auto) 11.7 % (4.1-12.4) Eosinophils (%) (Auto) 3.2 % (0.4-6.7) Basophils (%) (Auto) 0.3 % (0.3-1.4) Nucleated RBC Relative Count (auto) 0.0 /100WBC Neutrophils # (Auto) 7.5 K/uL (2.0-7.4) Lymphocytes # (Auto) 1.9 K/uL (1.3-3.6) Monocytes # (Auto) 1.3 K/uL (0.3-1.0) Eosinophils # (Auto) 0.4 K/uL (0.0-0.5) Basophils # (Auto) 0.0 K/uL (0.0-0.1) Nucleated RBC Absolute Count (auto) 0.01 K/uL Prothrombin Time 18.4 seconds (12.0-14.4) Prothromb Time International Ratio 1.52 Activated Partial Thromboplast Time 44 seconds (23-35) Sodium Level 141 mmol/L (137-145) Potassium Level 3.9 mmol/L (3.5-5.0) Chloride Level 105 mmol/L (98-107) Carbon Dioxide Level 25 mmol/L (22-30) Blood Urea Nitrogen 9 mg/dl (9-21) Creatinine 0.90 mg/dl (0.66-1.25) Glomerular Filtration Rate Calc > 60.0 Random Glucose 98 mg/dl (75-110) Calcium Level 9.2 mg/dl (8.4-10.2) Total Bilirubin 0.8 mg/dl (0.2-1.3) Aspartate Amino Transf (AST/SGOT) 30 U/L (0-35) Alanine Aminotransferase (ALT/SGPT) 27 U/L (0-56) Alkaline Phosphatase 71 U/L (0-126) Troponin I < 0.012 ng/ml B-Type Natriuretic Peptide 21 pg/ml (0-100) Total Protein 8.1 g/dl (6.3-8.2) Albumin 4.4 g/dl (3.5-5.0) Chemistry Test 02/22/19 10:30 White Blood Count 11.1 k/uL (4.5-11.0) Red Blood Count 5.22 M/uL (4.00-5.60) Hemoglobin 16.4 g/dL (14.0-18.0) Hematocrit 48.4 % (42.0-52.0) Mean Corpuscular Volume 92.7 fL (80.0-96.0) Mean Corpuscular Hemoglobin 31.5 pg (26.0-33.0) Mean Corpuscular Hemoglobin Concent 34.0 g/dL (32.0-36.0) Red Cell Distribution Width 13.1 % (11.5-14.5) Platelet Count 261 K/uL (150-450) Mean Platelet Volume 7.4 fL (7.2-11.1) Neutrophils (%) (Auto) 67.9 % (39.4-72.5) Lymphocytes (%) (Auto) 16.9 % (17.6-49.6) Monocytes (%) (Auto) 11.7 % (4.1-12.4) Eosinophils (%) (Auto) 3.2 % (0.4-6.7) Basophils (%) (Auto) 0.3 % (0.3-1.4) Nucleated RBC Relative Count (auto) 0.0 /100WBC Neutrophils # (Auto) 7.5 K/uL (2.0-7.4) Lymphocytes # (Auto) 1.9 K/uL (1.3-3.6) Monocytes # (Auto) 1.3 K/uL (0.3-1.0) Eosinophils # (Auto) 0.4 K/uL (0.0-0.5) Basophils # (Auto) 0.0 K/uL (0.0-0.1) Nucleated RBC Absolute Count (auto) 0.01 K/uL Prothrombin Time 18.4 seconds (12.0-14.4) Prothromb Time International Ratio 1.52 Activated Partial Thromboplast Time 44 seconds (23-35) Glomerular Filtration Rate Calc > 60.0 Calcium Level 9.2 mg/dl (8.4-10.2) Total Bilirubin 0.8 mg/dl (0.2-1.3) Aspartate Amino Transf (AST/SGOT) 30 U/L (0-35) Alanine Aminotransferase (ALT/SGPT) 27 U/L (0-56) Alkaline Phosphatase 71 U/L (0-126) Troponin I < 0.012 ng/ml B-Type Natriuretic Peptide 21 pg/ml (0-100) Total Protein 8.1 g/dl (6.3-8.2) Albumin 4.4 g/dl (3.5-5.0) Coagulation Test 02/22/19 10:30 Prothrombin Time 18.4 seconds Prothromb Time International Ratio 1.52 Activated Partial Thromboplast Time 44 seconds EKG/Imaging Imaging PATIENT NAME: Timothy Mchugh : 1985 MR: [id number] V: [id number] EXAM DATE: ORDERING PHYSICIAN: ABIGAIL SANTOS TECHNOLOGIST: Location: [facility] [place] Patient: Timothy Mchugh : 1985 Visit/Account:[id number] Date of Sevice: 02/22/2019 CT CTA CHEST W & W/O CON HISTORY: b/l PE dx tuesday, increased dyspnea ADDITIONAL HISTORY: None. TECHNIQUE: CTA chest with intravenous contrast attention to pulmonary arteries. Sagittal, coronal and slab 3D MIP coronal reconstructed images were also created for further evaluation and interpretation. One of the following dose optimization techniques was utilized in the performance of this exam: Automated exposure control; adjustment of the mA and/or kV according to the patient's size; or use of an iterative reconstruction technique. Specific details can be referenced in the facility's radiology CT exam operational policy. CONTRAST: 75 mL Isovue-370 IV COMPARISON: 02/19/2019, 02/16/2018 FINDINGS: Heart/vessels: Pulmonary arterial tree well opacified. Moderate overall volume bilateral pulmonary emboli involving the proximal lobar, segmental and subsegmental branches of all but the right middle lobe. The overall volume of embolic material has very slightly decreased from prior exam in several places and elsewhere is grossly stable. No clearly new or worsening pulmonary embolism. RV/LV ratio slightly improved, now 1.0 (previously 1.1). Mediastinum: Negative. Lymph nodes: Several prominent mediastinal and mildly enlarged right hilar nodes but unchanged from remote prior exam and likely chronic without bulky progressive adenopathy. Lungs/pleura: Very small volume right pleural fluid, slightly increased from prior exam. Left lung grossly clear. Mild chronic appearing scar or subsegmental atelectasis anterior lateral right upper and middle lobes, consistent with remote prior exam 2018. Small focus of evolving pulmonary infarct right lung base, approximately 2.8 x 3.6 cm transverse and not significantly changed in size. Mild dependent atelectasis right lung base. No new or worsening infarct. Worsening pulmonary infiltrate. No pneumothorax. Visualized upper abdomen: Grossly unremarkable. Bones/soft tissues: Several punctate bone islands within each humeral head and left glenoid. IMPRESSION: 1. Moderate volume bilateral pulmonary emboli, stable to very slightly decreased from prior exam. No evidence of new or worsening pulmonary embolism. 2. Small focus of evolving pulmonary infarct posterior lateral right lung base, not significantly changed in volume since prior exam. 3. Slightly increased but very small volume right pleural fluid. 4. No other significant interval change. ED Course/Re-evaluation ED Course Patient is a 34-year-old male here with complaints of increasing dyspnea in the setting of bilateral pulmonary emboli. Labs were unremarkable, troponin was negative, CT PE showed stable findings with mild improvement. Patient did have a small pulmonary effusion in the right lower lobe. Patient admittedly has not been using pulmonary hygiene techniques including incentive spirometry. Respiratory therapy did stop by and educated the patient regarding the importance of using these modalities. Patient likely has increased dyspnea secondary to atelectasis. Patient will use incentive spirometry at home and follow up closely with his PCP. I updated the patient regarding these findings and he voiced understanding. Return precautions provided. Decision to Disposition Date: Feb 22, 2019 Decision to Disposition Time: 13:32 Depart Departure Latest Vital Signs Vital Signs Date Time Temp Pulse Resp B/P (MAP) Pulse Ox O2 Delivery O2 Flow Rate FiO2 02/22/19 12:29 65 11 95 02/22/19 11:19 2.0 02/22/19 10:28 97.6 138/85 Room Air Impression: Primary Impression: Pulmonary emboli Additional Impression: Dyspnea Condition: Improved Disposition: HOME OR SELF-CARE Referrals: FREDA DE GUZMAN DO (PCP) Patient Instructions: Dyspnea (ED) Additional Instructions: Please follow-up with your family doctor in the next 24-48 hours. Please use your incentive spirometer in order to avoid developing infections of the lungs, also to increase your functional lung capacity. Please return promptly if you develop worsening cough, increased shortness breath, fevers, chills, chest pain. Problem Qualifiers ABIGAIL SANTOS DO Feb 22, 2019 10:58
[2019-02-22 11:06] LABS: PLATELET COUNT, AUTOMATED 261 K/uL (150-450)
[2019-02-22 11:14] LABS: INR 1.52
[2019-02-22] MEDS ORDERED: NS 0.9% 25 ML BAG 50 ML ONE (11:32)
[2019-02-22] MEDS ORDERED: IOPAMIDOL 76% 150 ML INFUS BTL 150 ML ONE (11:32)
--- NOTE | 2019-02-22 12:23 | RADIOLOGY IMAGING REPORT ---
FACILITY: [facility] - [place] PATIENT NAME: Timothy Mchugh : 1985 MR: [id number] V: [id number] EXAM DATE: ORDERING PHYSICIAN: ABIGAIL SANTOS TECHNOLOGIST: Location: [facility] Patient: Timothy Mchugh : 1985 Visit/Account:[id number] Date of Sevice: 02/22/2019 CT CTA CHEST W & W/O CON HISTORY: b/l PE dx tuesday, increased dyspnea ADDITIONAL HISTORY: None. TECHNIQUE: CTA chest with intravenous contrast attention to pulmonary arteries. Sagittal, coronal a nd slab 3D MIP coronal reconstructed images were also created for further evaluation and interpretati on. One of the following dose optimization techniques was utilized in the performance of this exam: Autom ated exposure control; adjustment of the mA and/or kV according to the patient's size; or use of an i terative reconstruction technique. Specific details can be referenced in the facility's radiology C T exam operational policy. CONTRAST: 75 mL Isovue-370 IV COMPARISON: 02/19/2019, 02/16/2018 FINDINGS: Heart/vessels: Pulmonary arterial tree well opacified. Moderate overall volume bilateral pulmonary emboli involving the proximal lobar, segmental and subsegmental branches of all but the right middle lobe. The overall volume of embolic material has very slightly decreased from prior exam in several places and elsewhere is grossly stable. No clearly new or worsening pulmonary embolism. RV/LV ratio slightly improved, now 1.0 (previously 1.1). Mediastinum: Negative. Lymph nodes: Several prominent mediastinal and mildly enlarged right hilar nodes but unchanged from remote prior exam and likely chronic without bulky progressive adenopathy. Lungs/pleura: Very small volume right pleural fluid, slightly increased from prior exam. Left lung grossly clear. Mild chronic appearing scar or subsegmental atelectasis anterior lateral right upper and middle lobes, consistent with remote prior exam 2017. Small focus of evolving pulmonary infarct right lung base, approximately 2.8 x 3.6 cm transverse and not significantly changed in size. Mild d ependent atelectasis right lung base. No new or worsening infarct. Worsening pulmonary infiltrate. No pneumothorax. Visualized upper abdomen: Grossly unremarkable. Bones/soft tissues: Several punctate bone islands within each humeral head and left glenoid. IMPRESSION: 1. Moderate volume bilateral pulmonary emboli, stable to very slightly decreased from prior exam. N o evidence of new or worsening pulmonary embolism. 2. Small focus of evolving pulmonary infarct posterior lateral right lung base, not significantly ch anged in volume since prior exam. 3. Slightly increased but very small volume right pleural fluid. 4. No other significant interval change. Report Dictated By: Alli Randle MD at 02/22/2019 12:06 PM Report E-Signed By: Alli Randle MD at 02/22/2019 12:18 PM [id number]
[2019-02-22 13:45] VITALS: BP 115/75
== END 2019-02-22 13:44 | disposition home or self-care (01) ==
LOC: ER 11:01
DX: I26.99 Other pulmonary embolism without acute cor pulmonale (principal); R06.00 Dyspnea, unspecified
CPT/HCPCS: 71275; 83880; 84484; 85025; 85610; 85730; 99284; Q9967; 82040; 82247; 82310; 82374; 82435; 82565; 82947; 84075; 84132; 84155; 84295; 84450; 84460; 84520